=== PATIENT | male | born 1960 | race Caucasian/White ===

== ENCOUNTER 2022-04-28 12:24 | Emergency (ER) | payer BC, SELFPAY ==
[2022-04-28 12:30] VITALS: BP 156/91; PULSE 85; RESP 16; TEMP 35.7; O2SAT 100
--- NOTE | 2022-04-28 12:34 | ED.GENADULT ---
HPI - General Adult General Chief complaint: Unspecified Stated complaint: lightheaded,body aches,fever Time Seen by Provider: 04/28/22 12:34 Source: patient and RN notes reviewed Mode of arrival: ambulatory Limitations: no limitations History of Present Illness HPI narrative: 62-year-old male presented for complaint of lightheadedness and feeling hot and clammy for about 5 days. Endorses difficulty finding words today. Also endorses decreased appetite. He states the day before his symptoms started he removed a tick from his skin that had been present for about 3 days prior. He denies associated chest pain, shortness of breath, nausea, vomiting, diarrhea. Denies significant PMH. Pt has been boosted for Covid, not vaccinated for flu. Denies sick contacts. Related Data Home Medications Medication Instructions Recorded Confirmed No Home Medications 04/28/22 04/28/22 Allergies Allergy/AdvReac Type Severity Reaction Status Date / Time No Known Allergies Allergy Verified 04/28/22 12:34 Review of Systems Review of Systems: CONSTITUTIONAL: Reports fever, chills, sweats. EYES: Denies visual changes ENT: Denies rhinorrhea, congestion, sore throat, or otalgia. CARDIOVASCULAR: Denies chest pain, palpitations, or edema. RESPIRATORY: Denies cough or dyspnea. GASTROINTESTINAL: Denies abdominal pain, nausea, vomiting, or diarrhea. SKIN: Endorses right lower leg rash, right upper thigh tick bite MUSCULOSKELETAL: Denies back pain, joint pain, or myalgia. NEUROLOGIC: Endorses dizziness denies numbness, tingling, or weakness All systems reviewed & are unremarkable except as noted in HPI and below PMFSH Family History Family History Father Malignant neoplasm of prostate Family history of diabetes mellitus in first degree relative Family history of coronary artery disease Sibling Family history of lung cancer Mother Cerebrovascular accident, Onset Age: 68 Social History Social History Smoking status: Never smoker Second hand tobacco smoke exposure: No Alcohol intake: current Comments At time of signature, I have reviewed and agree with nursing past medical, surgical, social and family history unless otherwise noted. Please see nursing chart for further information. There is no relevant family history pertinent to the presenting complaint Exam Narrative: GENERAL: Well-appearing, non toxic HEAD: Normocephalic, atraumatic. EYES: PERRLA, EOMI. ENT: Mucous membranes pink and moist. No rhinorrhea. TMs normal bilaterally. NECK: Normal AROM. Supple. No lymphadenopathy. CHEST: No respiratory distress. Clear to auscultation. HEART: Regular rate and rhythm. No murmur appreciated. Normal peripheral pulses. ABDOMEN: Soft, nontender, nondistended, normal active bowel sounds. EXTREMITIES: Normal range of motion. No edema. SKIN: Warm, dry, Reddened papular rash to right enamorado, approx 4cm diameter. Right upper inner thigh with approx 2cm diameter erythematous flat circular area c/w site of tick bite, no induration, fluctuance or active drainage. Capillary refill normal. Normal skin turgor. NEURO:No focal deficits. Alert and oriented x3. EOMs intact without nystagmus. No facial droop/asymmetry noted bilaterally. Grimace intact. Intact sensation in face. Hearing intact bilaterally. Strength 5/5 bilateral upper extremities. Ambulatory exam with a normal based, steady gait. PSYCH: Normal affect. Course Course Emergency Course: Patient is aware of diagnosis, understands and agrees to treatment plan. Anticipatory guidance given. Portions of this record may have been created with voice recognition software Level of Care: Express Care Visit Vital Signs Vital signs: Vital Signs Temperature 96.3 F L 04/28/22 12:30 Pulse Rate 85 04/28/22 12:30 Respiratory Rate 16 04/28/22 12:30 B
== END 2022-04-28 13:00 | disposition short-term general hospital (02) ==
LOC: EXPGLEN 12:27
PROVIDERS: Emergency Provider Nurse Practitioner Family
DX: R42 Dizziness and giddiness (principal)
CPT/HCPCS: 99202; A9270; G0463

== ENCOUNTER 2022-04-28 13:10 | Emergency (ER) | payer BC, SELFPAY ==
--- NOTE | 2022-04-28 13:13 | ECG_ITS ---
Measurements Intervals [place] Rate: 80 P: 33 OK: 156 QRS: -37 QRSD: 104 T: 1 QT: 371 QTc: 429 Interpretive Statements SINUS RHYTHM LEFT AXIS DEVIATION POOR R WAVE PROGRESSION, ANTERIOR LEADS BORDERLINE T WAVE ABNORMALITY- INFERIOR LEADS BASELINE ARTIFACT- I, III, AVL BORDERLINE ECG Electronically Signed On 04-28-2022 14:34:31 CDT by Erik Varghese D.O.
[2022-04-28 13:24] VITALS: BP 169/98; PULSE 84; RESP 18; TEMP 36.6; O2SAT 99
[2022-04-28 13:41] LABS: Basophils Absolute Auto 0.1 K/mm3 (0.0-0.1); Basophils Percent Auto 1.6 % (0.2-1.2); Eosinophils Percent Auto 0.3 % (0-4.4); Hematocrit 48.7 % (42.0-52.0); Hemoglobin 16.1 g/dL (14.0-18.0); Immature Granulocyte Absolute 0.01 K/mm3 (0.00-0.031); Immature Granulocyte Percent A 0.3 % (0-0.5); Lymphocytes Absolute Auto 2.16 K/mm3 (0.9-3.2); Lymphocytes Percent Auto 56.5 % (18.3-44.2); Mean Corpuscular HGB Conc 33.1 g/dl (32-36); Mean Corpuscular Hemoglobin 31.4 pg (26-34); Mean Corpuscular Volume 95.1 fl (80-100); Mean Platelet Volume 9.5 fl (7.4-10.4); Monocytes Absolute Auto 0.4 K/mm3 (0.1-0.6); Monocytes Percent Auto 10.7 % (2.6-8.5); Neutrophils Absolute Auto 1.2 K/mm3 (1.3-6.7); Neutrophils Percent Auto 30.6 % (45.5-73.1); Platelet Count Result 208 k/mm3 (150-375); Red Blood Count 5.12 M/mm3 (4.6-6.20); Red Cell Distribution Width 13.2 % (11.5-14.5); White Blood Count 3.8 K/mm3 (4.5-10.0)
[2022-04-28 13:46] LABS: Alanine Aminotransferase 104 U/L (6-50); Albumin Level 4.4 g/dL (3.5-5.1); Alkaline Phosphatase 110 U/L (38-126); Anion Gap 7 mmol/L (8-16); Aspartate Amino Transferase 87 U/L (17-59); Bilirubin,Total 0.3 mg/dL (0.2-1.3); Blood Urea Nitrogen 21 mg/dL (9-20); Calcium 8.5 mg/dL (8.4-10.2); Carbon Dioxide 30 mmol/L (22-30); Chloride 100 mmol/L (98-107); Estimated Glomerular Filt Rate > 60; Glucose 99 mg/dL (65-110); Potassium 4.1 mmol/L (3.4-5.0); Sodium 137 mmol/L (137-145)
[2022-04-28 14:19] LABS: Platelet Estimate Adequate (Adequate)
[2022-04-28 14:20] LABS: Atypical Lymphocytes Present
--- NOTE | 2022-04-28 15:31 | ED.GENADULT ---
HPI - General Adult General Chief complaint: Dizziness Stated complaint: Lightheaded, Fever Time Seen by Provider: 04/28/22 15:11 History of Present Illness HPI narrative: 62-year-old male presents here after he had a tick bite, he states to have been in BP out week ago, it was on his left thigh and there was initially a red spot that grew bigger, with some swelling, that then started to resolve. He states that he has also been having some lightheadedness and body aches, no fevers no chills, no cough or nausea or vomiting. Related Data Allergies Allergy/AdvReac Type Severity Reaction Status Date / Time No Known Allergies Allergy Verified 04/28/22 12:34 Review of Systems Review of Systems: CONST: No fever. HEENT: No sore throat C/V: No chest pain RESP: No cough GI: No nausea or vomiting : No dysuria. M/S: body aches SKIN: rash at site of bite NEURO: [No headache or focal numbness or weakness] PSYCH: [No depression] [facility] Family History Family History Father Malignant neoplasm of prostate Family history of diabetes mellitus in first degree relative Family history of coronary artery disease Sibling Family history of lung cancer Mother Cerebrovascular accident, Onset Age: 68 Social History Social History Smoking status: Never smoker Second hand tobacco smoke exposure: No Alcohol intake: current Exam Narrative: EXAMINATION OF ORGAN SYSTEMS/BODY AREAS: Constitutional: Vital signs per nursing GENERAL:[No acute distress, non-toxic appearing.] HEAD: Normal with no signs of head trauma. EYES: EOMI, conjunctiva normal ENT: Hearing grossly intact LUNGS: Nonlabored breathing. HEART: [Regular rate and rhythm] ABD: [Soft], [nontender to palpation] EXT: Normal range of motion SKIN: Erythematous round lesion right upper thigh NEURO: [Alert and oriented x 3. No gross focal sensory or strength deficits.] PSYCH: Normal affect Course Vital Signs Vital signs: Vital Signs Temperature 97.8 F 04/28/22 13:24 Pulse Rate 84 04/28/22 13:24 Respiratory Rate 18 04/28/22 13:24 Blood Pressure 169/98 H 04/28/22 13:24 Pulse Oximetry 99 04/28/22 13:24 Oxygen Delivery Room Air 04/28/22 13:24 Temperature 97.8 F 04/28/22 13:24 Pulse Rate 84 04/28/22 13:24 Respiratory Rate 18 04/28/22 13:24 Blood Pressure 169/98 H 04/28/22 13:24 Pulse Oximetry 99 04/28/22 13:24 Oxygen Delivery Room Air 04/28/22 13:[address] [facility] Narrative Medical decision making narrative: 62-year-old male who presents after tick bite and rash, states he has been feeling slightly lightheaded but no chest pain or difficulty breathing, vital signs stable, exam does show erythematous rash, given the patient's description I am concerned that he likely is at risk for Lyme disease so I will start him on antibiotics for this. EKG - 12-Lead: Performed at 1320. Interpreted by me. [Sinus rhythm]. Rate 80. Left deviated axis. AK-interval 156. QRS duration 104. QTc 429. [No ST segment elevation or depression]. [T-wave normal]. Impression: No EKG evidence of acute ischemia or dysrhythmia. Labs within acceptable limits, patient tells me that he is mostly just here for treatment for the tick bite, he will be going to his primary care doctor for the remainder of his care. He is stable for discharge home and return for nausea spreading. Vital Signs Vital Signs: Vital Signs Temperature 97.8 F 04/28/22 13:24 Pulse Rate 84 04/28/22 13:24 Respiratory Rate 18 04/28/22 13:24 Blood Pressure 169/98 H 04/28/22 13:24 Pulse Oximetry 99 04/28/22 13:24 Oxygen Delivery Room Air 04/28/22 13:24 Temperature 97.8 F 04/28/22 13:24 Pulse Rate 84 04/28/22 13:24 Respiratory Rate 18 04/28/22 13:24 Blood Pressure 169/98 H 04/28/22 13:24 Pulse Oximetry 99 04/28/22 13:24 Oxyg
== END 2022-04-28 15:48 | disposition home or self-care (01) ==
PROVIDERS: Emergency Provider Emergency Medicine
DX: S70.362A Insect bite (nonvenomous), left thigh, initial encounter (principal); W57.XXXA Bitten or stung by nonvenomous insect and other nonvenomous arthropods, initial encounter
CPT/HCPCS: 36415; 80053; 85025; 93005; 99283